=== PATIENT | female | born 1990 | race African-American/Black ===

== ENCOUNTER 2019-05-11 02:10 | Inpatient (IN) | payer MEDICAID ==
[2019-05-11] MEDS ORDERED: Lidocaine 1% 50 ML MDV ONE (02:46)
--- NOTE | 2019-05-11 03:49 | PCM.LDHP ---
L&D History of Present Illness - General Date of Service: 05/11/19 Admit Problem/Dx: Admission Diagnosis/Problem Admission Diagnosis/Problem 05/11/19 03:39 Zo is a 29-year-old 1 para 0 -Turkmen female who is admitted in active labor with initial cervical evaluation showing 7 cm dilation. She is actively rafael every 3 minutes. She is feeling pressure and feels she will be delivering soon. Source of Information: Patient History Limitations: Reports: No Limitations - History of Present Illness Introduction:: Zo is a 29-year-old 1 para 0 -Turkmen female who is admitted in active labor with initial cervical evaluation showing 7 cm dilation. She is actively rafael every 3 minutes. She is feeling pressure and feels she will be delivering soon.She had been an early on 05/10/2019 in early labor but without significant change was discharged home. During the course of the night at approximately 2200 hrs. on 05/10/2019 she started having start contractions. She does not know if she ruptured membranes and if so when. Baby has been active. She is not interested in epidural at this time. TAKE AWAY ATTENDANT history: 1 para 0 with an JERRELL of 05/14/2019 presently at 39-4/7 weeks gestational age. Patient transferred her care into our clinic at approximately 25 weeks gestational age. She had regular care from that time forward. No 5 that time. Her weight gain in the from pregravid weight of 180 to help through a final weight of 194.4. Her fundal height growth was appropriate. Her vital signs were stable throughout the course. She is known to have hepatitis B and hepatitis panels showed that she has a chronic hepatitis diagnosis. She was seen by Dr. Godfrey BARTLETT at [facility] in [place]. Recommendation was that patient does not need any treatment whatsoever. The baby after delivery will need immunoglobulin therapy and hepatitis B immunization. Patient plans to breast-feed. Her group B strep screen is negative. She desires natural labor. She has an abnormal Pap smear with ASCUS with positive high-risk HPV changes. This will require colposcopic evaluation after delivery. Laboratory testing in shows blood. Positive. Negative antibody screen. She is rubella immune. Hepatitis B surface antigen was positive and laboratory testing showed a chronic hepatitis B state. HIV was negative as were Chlamydia and gonorrhea assays. Her 1 hour GTT was 74. Second trimester hemoglobin was 13.9 and platelets are 188,000. Group B strep screen was negative. Additional labs included hepatitis B surface antigen which was reactive. Hepatitis B surface antigen confirmation was positive. Hepatitis core antibody IgM was negative. Hepatitis B surface antibody quantitative furcation was less than 3.1. Hepatitis a antibiotic total was positive. Hepatitis A antibody IgM was negative. Allergies none Medications: vitamins Past medical history: 1. Chronic hepatitis B 2. ASCUS with high-risk HPV changes on Pap smear Past surgical history: Unremarkable. Family history: Mother secondary to liver cancer secondary to chronic hepatitis B. Father is , cause unknown. 2 brothers are alive and well. One sister is diabetic and has hypertension and heart problems. Maternal grandfather is deceasedcause unknown. Maternal grandmother is secondary to old age. Paternal grandmother is secondary to old age. Paternal grandfather is deceasedcause unknown. No known family history of cancer other than in her mother, no bleeding disorders, blood clotting disorders , anesthesia related issues or related problems. Social history: Patient is single. 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 She speaks Armenian. She does not use any loss of alcohol, drugs or tobacco. Father the baby is not involved with the . Review of systems: In general patient has only the complaint of labor pains at this time. Baby has been active.. Skin: Negative Lungs: No infectious symptoms or shortness of breath Cardiovascular: No chest pain or exercise intolerance Breasts: No lumps, changes in size, pain, dimpling, discharge or axillary or supraclavicular concerns. Changes associated with . GI: Negative : Changes associated with . Labor pains at this time. Musculoskeletal: Negative Neurological: Negative In general the patient is well-developed, well-nourished, pleasant female of stated age in moderate acute distress secondary to labor. Skin is warm dry without lesions. HEENT, neck and back within normal limits. Lungs are clear with good breath sounds in all lung hamlin. Breast exam deferred. Patient plans to breast Cardiovascular exam shows regular and rhythm without murmurs. Abdomen is gravid with fundal height of 36 cm on last evaluation in clinic. Genital digital exam shows cervix to be 7 cm, 100% effaced, spontaneous rupture membranes with clear fluid, anterior position, very soft.. Extremities and neurological exam are grossly within normal limits. - Related Data Allergies/Adverse Reactions: Allergies Allergy/AdvReac Type Severity Reaction Status Date / Time No Known Allergies Allergy Verified 05/10/19 09:25 Home Medications: Home Meds Pnv No.122/Iron/Folic Acid [ Multi Tablet] 1 each PO DAILY 05/10/19 [ History] H&P Review of Systems - Review of Systems: Review Of Systems: See Below L&D Exam - Exam Exam: See Below Problem List Initiated/Reviewed/Updated: Yes Assessment/Plan Comment:: 1. 39-4/7 week intrauterine , active labor with advanced cervical dilation. 2. Chronic hepatitis B status-no therapy indicated in mother but immunoglobulin and immunization recommended. 3. She desires natural labor 4. Patient desires breast feeding 5. Group B strep negative 6. History of abnormal Pap smear requiring colposcopy after delivery 7. B+ blood Plan: 1. Anticipate normal spontaneous vaginal delivery 2. Normal analgesia per patient desire 3. Support breast-feeding decision 4. Will communicate patient's history to pediatrics 5. Routine labor care.
--- NOTE | 2019-05-11 04:01 | PCM.SN ---
- Free Text/Narrative Note: Delivery note: Zo is a 29-year-old 1 now para 1001 white female who was seen in labor and delivery early on the morning of 05/10/2019 with suspected early labor. She was 39-3/7 weeks gestational age with an JERRELL of 05/14/2019. She however she started contractions and did not change her cervix over the course of approximately 4-5 hours. She was discharged home. At approximately 2200 hrs. on 05/10/2019 patient began rafael more aggressively and proceeded into active labor. She arrived on the morning of 05/11/2019 at 7 cm dilation 100% effaced. She rapidly progressed to complete cervical dilation. At 0302 hrs. on 05/11/2019 she delivered a viable, quiroz, male with Apgars of 8 and 9, weight of 2340 g (5 pounds 2.5 ounces), a length of 19.5 inches in a left occiput anterior position. It was a nuchal cord 1 which was loose and was reduced over the baby's head. Baby was placed on mom's abdomen. Nose mouth were bulb suctioned. Cord was allowed to pulsate for approximately 2 minutes and then was clamped and cut by the patient's sister. The umbilical cord had 3 vessels. Pitocin was increased to 500 mL an hour IV to facilitate increase in uterine tone and decrease likelihood of bleeding. Patient was noted to have no significant vulvar or vaginal lacerations and no suturing was required. Placenta delivered in a Buitrago presentation, appeared intact and complete and was discarded per patient desire. Estimated blood loss was 200 mL. Patient plans to breast-feed. Condition: Good.
[2019-05-11] MEDS ORDERED: Witch Hazel Medicated Pads 40/Jar TOP PRN (05:26)
[2019-05-11] MEDS ORDERED: Docusate Sodium 100 MG Cap PO PRN (05:26)
[2019-05-11] MEDS ORDERED: Benzocaine/Menthol 20%-0.5% Spray 56 GM Canister TOP PRN (05:26)
[2019-05-11] MEDS ORDERED: Oxytocin/Lactated Ringers 20 UNIT/1,000 ML BAG IV SCH (05:26)
[2019-05-11] MEDS ORDERED: Lanolin 100% Cream 7 GM Tube TOP PRN (05:26)
[2019-05-11] MEDS: Ibuprofen 600 MG Tab PO PRN ×3 (05:45→16:26)
[2019-05-11] MEDS ORDERED: Oxytocin/Lactated Ringers 10 UNIT/1,000 ML BAG IV SCH (07:00)
--- NOTE | 2019-05-11 08:35 | PCM.SN ---
- Free Text/Narrative Note: note: Day of delivery Patient is doing well in the period. Minimal lochia, voiding well, ambulated without problems. Nursing without concerns. Patient is afebrile, vital signs are stable Abdomen is flat, soft, uterus is below the umbilicus and is firm and nontender. Legs are nontender. Assessment: recovery going well. Plan: Routine care. Patient be discharged home within the next 24-48 hours.
[2019-05-11] MEDS: Acetaminophen 325 MG Tab PO PRN (20:48)
--- NOTE | 2019-05-12 07:25 | PCM.DCSUM1 ---
Discharge Summary - Hospital Course Free Text/Narrative:: Zo is a 29-year-old 1 now para 1001 white female who was seen in labor and delivery early on the morning of 05/10/2019 with suspected early labor. She was 39-3/7 weeks gestational age with an JERRELL of 05/14/2019. She however she started contractions and did not change her cervix over the course of approximately 4-5 hours. She was discharged home. At approximately 2200 hrs. on 05/10/2019 patient began rafael more aggressively and proceeded into active labor. She arrived on the morning of 05/11/2019 at 7 cm dilation 100% effaced. She rapidly progressed to complete cervical dilation. At 0302 hrs. on 05/11/2019 she delivered a viable, quiroz, male with Apgars of 8 and 9, weight of 2340 g (5 pounds 2.5 ounces), a length of 19.5 inches in a left occiput anterior position. It was a nuchal cord 1 which was loose and was reduced over the baby's head. Baby was placed on mom's abdomen. Nose mouth were bulb suctioned. Cord was allowed to pulsate for approximately 2 minutes and then was clamped and cut by the patient's sister. The umbilical cord had 3 vessels. Pitocin was increased to 500 mL an hour IV to facilitate increase in uterine tone and decrease likelihood of bleeding. Patient was noted to have no significant vulvar or vaginal lacerations and no suturing was required. Placenta delivered in a Buitrago presentation, appeared intact and complete and was discarded per patient desire. Estimated blood loss was 200 mL. Patient plans to breast-feed. patient is done well. She is ambulating well, has minimal lochia and is voiding without concerns. She is ready for discharge. Diagnosis: Stroke: No - Discharge Data Discharge Date: 05/12/19 Discharge Disposition: Home, Self-Care 01 Condition: Good - Patient Instructions Diet: Regular Diet as Tolerated (Nursing diet was increased calories and calcium is recommended) Activity: As Tolerated (No intercourse or tampons until bleeding resolves) Driving: May Drive Today Showering/Bathing: May Shower (May take a bath) Notify Provider of: Fever, Increased Pain, Swelling and Redness, Nausea and/or Vomiting - Discharge Plan Home Medications: Home Meds Pnv No.122/Iron/Folic Acid [ Multi Tablet] 1 each PO DAILY 05/10/19 [ History] Acetaminophen [Tylenol] 650 mg PO Q4H PRN tablet 05/12/19 [Rx] Ibuprofen [Motrin] 600 mg PO Q4H PRN tablet 05/12/19 [Rx] Referrals: Seven Currie MD [Primary Care Provider] - (Return to clinicDr. Currie2 weeks.) - Discharge Summary/Plan Comment DC Time >30 min.: No Discharge Summary/Plan Comment: Discharge instructions: 1. Discharge home 2. Diet, activity and follow-up discussed with patient. Recommend nursing diet with increased calories and calcium. 3. Precautions given concern increased pain, bleeding, temperature, signs/ symptoms of DVT/PE. 4. Medications per home medication was printed, discussed with and given to the patient. 5. Return to clinic-Dr. Currie-[facility] in 2 weeks. Diagnosis: Term -delivered Condition: Good - Patient Data Vitals - Most Recent: Last Vital Signs Temp 36.6 C 05/12/19 04:35 Pulse 95 05/12/19 04:35 Resp 16 05/12/19 04:35 BP 106/76 05/12/19 04:35 Pulse Ox 100 05/12/19 04:35 Weight - Most Recent: 88.904 kg I&O - Last 24 hours: Intake & Output 05/11/19 05/12/19 05/12/19 22:59 06:59 14:59 Intake Total 480 Balance 480 Lab Results - Last 24 hrs: Laboratory Results - last 24 hr 05/12/19 Range/Units 06:00 WBC 11.76 H (3.98-10.04) K/mm3 RBC 4.29 (3.98-5.22) M/mm3 Hgb 12.8 (11.2-15.7) gm/L Hct 38.1 (34.1-44.9) % MCV 88.8 (79.4-94.8) fl MCH 29.8 (25.6-32.2) pg MCHC 33.6 (32.2-35.5) g/dl RDW Std Deviation 42.5 (36.4-46.3) fL Plt Count 196 (182-369) K/mm3 MPV 10.4 (9.4-12.3) fl Med Orders - Current: Current Medications Acetaminophen (Tylenol) 650 mg PO Q4H PRN PRN Reason: mild pain or fever Last Admin: 05/11/19 20:48 Dose: 650 mg Benzocaine/Menthol (Dermoplast Pain Relief [place]) 0 gm TOP ASDIRECTED PRN PRN Reason: Perineal Comfort Measure Last Admin: 05/11/19 22:22 Dose: 1 can Docusate Sodium (Colace) 100 mg PO BID PRN PRN Reason: Constipation Emollient Ointment (Lansinoh Hpa) 0 gm TOP ASDIRECTED PRN PRN Reason: Sore Nipples Oxytocin/Lactated Ringer's (Pitocin In Lr 20 Units/1,000 Ml) 20 unit in 1,000 mls @ 500 mls/hr IV SEECOMMENT EMPERATRIZ Oxytocin/Lactated Ringer's (Pitocin In Lr 10 Units/1,000 Ml) 10 unit in 1,000 mls @ 3,000 mls/hr IV TITRATE EMPERATRIZ; Protocol Last Admin: 05/11/19 07:14 Dose: 500 munits/min, 3,000 mls/hr Ibuprofen (Motrin) 600 mg PO Q4H PRN PRN Reason: Mild pain or fever Last Admin: 05/11/19 16:26 Dose: 600 mg Witch Macarena (Tucks) 1 pad TOP ASDIRECTED PRN PRN Reason: Pain Discontinued Medications Lidocaine HCl (Xylocaine 1%) Confirm Administered Dose 50 ml .ROUTE .STK-MED ONE Stop: 05/11/19 02:47
[2019-05-12] MEDS: Acetaminophen 325 MG Tab PO PRN (09:03)
== END 2019-05-12 14:20 | disposition home or self-care (01) | DRG 806 ==
LOC: JD.OBCHECK 02:10 → JD.OB 02:50 → JD.OBCHECK 02:52 → JD.OB 02:53 → OBSVTOIN 03:02 → JD.OB 03:02
PROVIDERS: ADMIT Obstetrics & Gynecology; ATTEND Obstetrics & Gynecology
PROC: 10E0XZZ Delivery of Products of Conception, External Approach (ICD-10-PCS; principal; 2019-05-11)
DX: O98.42 Viral hepatitis complicating childbirth (principal); B18.1 Chronic viral hepatitis B without delta-agent; Z37.0 Single live birth; Z3A.39 39 weeks gestation of pregnancy; O62.1 Secondary uterine inertia; O69.81X0 Labor and delivery complicated by cord around neck, without compression, not applicable or unspecified; R87.610 Atypical squamous cells of undetermined significance on cytologic smear of cervix (ASC-US); R87.810 Cervical high risk human papillomavirus (HPV) DNA test positive; O99.89 Other specified diseases and conditions complicating pregnancy, childbirth and the puerperium
CPT/HCPCS: 36415; 59025; 59409; 85027; 86803; A9270-GY; J2590